=== PATIENT | male | born 1940 | race Caucasian/White ===

== ENCOUNTER 2018-02-22 11:10 | Inpatient (IN) | payer OTHER, MEDICARE ==
[2018-02-22] VITALS (9 sets, daily range): BP systolic 117–152; BP diastolic 59–76; PULSE 68–123; RESP 15–20; TEMP 97.6–103; O2SAT 92–97
[~2018-02-22 11:10] MED LIST: ALLO300T2 PO; AMIT25 PO; AMLO5TAB96 PO; ATOR40TA49 PO; CITA20TA4 PO; DOXA1 PO; GABA300C3 PO; GABA600T PO; MECL25 PO; NORV5TAB PO; TRAM50TA PO; [UNRECOGNIZED DRUG - CODE] IM
--- NOTE | 2018-02-22 11:18 | PD ---
HPI Chief Complaint: Fever and diarrhea Time Seen by Provider: 11:17 Travel History International Travel<30 days: No Contact w/Intl Traveler<30days: No Traveled to known affect area: No History of Present Illness HPI 77-year-old male came to the emergency room with his for fever. Patient says he has been running a fever for past 7 days along with diarrhea. Patient did contact his primary care what was told to take Tylenol. The fever is not getting better and neither is the diarrhea. Patient took some hydrocodone and Tylenol under distress and diaphoretic. He says he has had 4-5 episodes of diarrhea in past 24 hours. No sick contacts no antibiotic consumption. He is tachycardic in triage. No history of vomiting. Patient is coughing occasionally he said. Patient looks uncomfortable and in moderate distress. PFSH Past Medical History Narrative Medical List of his past medical, surgical, social and family history is reviewed from the nursing note. AAA: Yes Arthritis: Yes Blood Disorders: No Depression: Yes ([facility]) Cancer: No High Cholesterol: Yes Chemotherapy: No Diminished Hearing: No Endocrine: No Gout: Yes Hypertension: Yes Immune Disorder: No Psychiatric: Yes Radiation Therapy: No Shingles: Yes (POST HERPATIC NEURALGIA) Ulcer: Yes Past Surgical History Abdominal Surgery: No Cardiac Surgery: No Ear Surgery: No Endocrine Surgery: No Eye Surgery: No Genitourinary Surgery: No Gynecologic Surgery: No Oral Surgery: Yes (TEETH EXTRACTED) Thoracic Surgery: No Valve Replacement: Yes Other Surgery: Yes (NEVI REMOVED FROM R SHOULDER) Social History Alcohol Use: No Tobacco Use: No (QUIT SMOKING IN 1976) Substance Use: No Allergies-Medications (Allergen,Severity, Reaction): Coded Allergies: No Known Allergies (Verified Allergy, Unknown, 02/22/18) Comments No known drug allergies. Reported Meds & Prescriptions Reported Meds & Active Scripts Active Reported Testosterone Cypionate Inj (Testosterone Cypionate) 100 Mg/Ml Inj 1.5 Ml IM EVERY 10 DAYS Atorvastatin (Atorvastatin Calcium) 20 Mg Tab 20 Mg PO HS Amlodipine (Amlodipine Besylate) 5 Mg Tab 5 Mg PO HS Doxazosin (Doxazosin Mesylate) 8 Mg Tab 8 Mg PO HS Allopurinol 300 Mg Tab 150 Mg PO DAILY Levothyroxine (Levothyroxine Sodium) 25 Mcg Tab 25 Mcg PO DAILY Sertraline (Sertraline HCl) 100 Mg Tab 100 Mg PO DAILY Gabapentin 800 Mg Tab 800 Mg PO TID Hydrocodone-Acetaminophen 5-325 mg Tab 1 Tab PO Q6H PRN Narrative Medication List of his home medications reviewed from the nursing note. Review of Systems Except as stated in HPI: all other systems reviewed are Neg General / Constitutional: Positive: Fever Gastrointestinal: Positive: Diarrhea Physical Exam Narrative GENERAL: Awake, lethargic, moderate distress, obese SKIN: Focused skin assessment warm/dry. Diaphoretic HEAD: Atraumatic. Normocephalic. EYES: Pupils equal and round. No scleral icterus. No injection or drainage. ENT: No nasal bleeding or discharge. Dry mucous membrane. NECK: Trachea midline. No JVD. CARDIOVASCULAR: Regular rate and rhythm. No murmur appreciated. RESPIRATORY: No accessory muscle use. Clear to auscultation. Breath sounds equal bilaterally. GASTROINTESTINAL: Abdomen soft, non-tender, nondistended. Hepatic and splenic margins not palpable. MUSCULOSKELETAL: No obvious deformities. No clubbing. No cyanosis. No edema. NEUROLOGICAL: Awake and alert. No obvious cranial nerve deficits. Motor grossly within normal limits. Normal speech. PSYCHIATRIC: Appropriate mood and affect; insight and judgment normal. Data Data Last Documented VS Vital Signs Date Time Temp Pulse Resp B/P (MAP) Pulse Ox O2 Delivery O2 Flow Rate FiO2 02/22/18 14:16 99.1 77 20 122/59 (80) 96 Nasal Cannula 2.00 Orders Orders Ketorolac Inj (Toradol Inj) (02/22/18 11:30) Sepsis Workup Initiated (02/22/18 ) Complete Blood Count With Diff (02/22/18 11:36) Comprehensive Metabolic Panel (02/22/18 11:36) Lactic Acid Sepsis Protocol (02/22/18 11:36) Urinalysis - C+S If Indicated (02/22/18 11:36) Influenzae A/B Antigen (02/22/18 11:36) Blood Culture (02/22/18 11:36) Chest, Single Ap (02/22/18 11:36) Blood Glucose (02/22/18 11:36) Ecg Monitoring (02/22/18 11:36) Iv Access Insert/Monitor (02/22/18 11:36) Oximetry (02/22/18 11:36) Oxygen Administration (02/22/18 11:36) Sodium Chlor 0.9% 1000 Ml Inj (Ns 1000 M (02/22/18 11:45) Sodium Chlor 0.9% 1000 Ml Inj (Ns 1000 M (02/22/18 11:45) Enteric Path (Stool) (02/22/18 11:36) C Diff Toxin Pcr (02/22/18 11:36) Acetaminophen (Tylenol) (02/22/18 11:45) Potassium Chloride (Kcl) (02/22/18 12:30) Ct Abd/Pel W/O Iv Contrast (02/22/18 ) Chest, Pa & Lat (02/22/18 ) Piperacil-Tazo 4.5 Gm Premix (Zosyn 4.5 (02/22/18 12:30) Vancomycin Inj (Vancomycin Inj) (02/22/18 12:30) Sodium Chlor 0.9% 1000 Ml Inj (Ns 1000 M (02/22/18 13:30) Urine Culture (02/22/18 13:25) Admit Order (Ed Use Only) (02/22/18 14:19) Labs Laboratory Tests Test 02/22/18 11:40 02/22/18 13:25 White Blood Count 8.8 TH/MM3 Red Blood Count 4.23 MIL/MM3 Hemoglobin 13.4 GM/DL Hematocrit 39.2 % Mean Corpuscular Volume 92.6 FL Mean Corpuscular Hemoglobin 31.6 PG Mean Corpuscular Hemoglobin Concent 34.1 % Red Cell Distribution Width 13.1 % Platelet Count 144 TH/MM3 Mean Platelet Volume 8.0 FL Neutrophils (%) (Auto) 90.5 % Lymphocytes (%) (Auto) 3.3 % Monocytes (%) (Auto) 3.8 % Eosinophils (%) (Auto) 0.9 % Basophils (%) (Auto) 1.5 % Neutrophils # (Auto) 8.0 TH/MM3 Lymphocytes # (Auto) 0.3 TH/MM3 Monocytes # (Auto) 0.3 TH/MM3 Eosinophils # (Auto) 0.1 TH/MM3 Basophils # (Auto) 0.1 TH/MM3 CBC Comment DIFF FINAL Differential Comment Blood Urea Nitrogen 19 MG/DL Creatinine 1.30 MG/DL Random Glucose 138 MG/DL Total Protein 6.5 GM/DL Albumin 2.9 GM/DL Calcium Level 8.1 MG/DL Alkaline Phosphatase 106 U/L Aspartate Amino Transf (AST/SGOT) 19 U/L Alanine Aminotransferase (ALT/SGPT) 19 U/L Total Bilirubin 2.6 MG/DL Sodium Level 137 MEQ/L Potassium Level 3.3 MEQ/L Chloride Level 103 MEQ/L Carbon Dioxide Level 26.5 MEQ/L Anion Gap 8 MEQ/L Estimat Glomerular Filtration Rate 54 ML/MIN Lactic Acid Level 2.7 mmol/L Urine Collection Type CATH Urine Color DARK-YELLOW Urine Turbidity CLOUDY Urine pH 6.0 Urine Specific [place] 1.025 Urine Protein 100 mg/dL Urine Glucose (UA) NEG mg/dL Urine Ketones 15 mg/dL Urine Occult Blood TRACE Urine Nitrite POS Urine Bilirubin MOD Urine Urobilinogen GREATER/EQUAL 8.0 MG/DL Urine Leukocyte Esterase SMALL Urine RBC 4-9 /hpf Urine WBC 50-99 /hpf Urine Bacteria MANY /hpf Microscopic Urinalysis Comment CULTURE INDICATED Urine Collection Time 13:25 MDM Medical Decision Making Medical Screen Exam Complete: Yes Emergency Medical Condition: Yes Medical Record Reviewed: Yes Differential Diagnosis Sepsis, pneumonia, UTI, acute colitis Narrative Course 12:12 PM awaiting for blood test result and x-ray. Patient is getting IV fluid bolus and Toradol which would be an antipyretic for him. 12:25 PM blood test results are back and patient has elevated bilirubin and normal CBC with significant left shift. Potassium is slightly low and I have ordered for oral replacement. Chest x-ray shows bilateral lower base possible infiltrate but radiologist says as for AP and lateral x-ray. Currently awaiting for the x-ray and the CT abdomen and pelvis. Lactic acid is elevated. I will order Zosyn and vancomycin. Patient will require to be admitted once CTs are done. 1:14 PM the PA and lateral chest x-ray is negative for any infiltrate. Awaiting for the CT to be done and resulted. UA is strongly positive for UTI. I have ordered for a second bolus of fluid. I will admit him. Critical Care Narrative Aggregate critical care time was 30 minutes. Time to perform other separately billable procedures was not included in the critical care time. My time did not include minutes spent treating any other patients simultaneously or on activities that did not directly contribute to the patient's treatment. The services I provided to this patient were to treat and/or prevent clinically significant deterioration that could result in: Sepsis, sepsis protocol I provided critical care services requiring my management, as noted below: Chart data review, documentation time, medication orders and management, vital sign assessments/reviewing monitor data, ordering and reviewing lab tests, ordering and interpreting/reviewing x-rays and diagnostic studies, care of the patient and discussion of the patient with the admitting physicians. Procedures EKG Prior to Arrival: No Sepsis Criteria SIRS Criteria (2 or more): Temp > 100.9 or < 96.8, Heart rate over 90 Sepsis Criteria (SIRS+source): Infect source susp/known Severe Sepsis (+one): Lactate >2 Diagnosis Primary Impression: Sepsis Qualified Codes: A41.9 - Sepsis, unspecified organism Additional Impressions: Diarrhea Qualified Codes: R19.7 - Diarrhea, unspecified UTI (urinary tract infection) Qualified Codes: N39.0 - Urinary tract infection, site not specified Cholelithiasis Qualified Codes: K80.20 - Calculus of gallbladder without cholecystitis without obstruction Admitting Information Admitting Physician Requests: Conner Denise MD Feb 22, 2018 11:18
[2018-02-22] MEDS ORDERED: HYDR-3516 PO (11:27)
[2018-02-22] MEDS ORDERED: UNK MEDS (11:28)
[2018-02-22] MEDS ORDERED: KETOROLAC TROMETHAMINE 30 MG/ML (IVP) VIAL IV PUSH ONE (11:30)
[2018-02-22] MEDS ORDERED: SODIUM CHLOR 0.9% 1000 ML INJ 1,000 ML IV ONE ×3 (11:45→13:30)
[2018-02-22] MEDS ORDERED: ACETAMINOPHEN 325 MG TAB PO ONE (11:45)
[2018-02-22] MEDS ORDERED: SERT-129 PO (11:55)
[2018-02-22] MEDS ORDERED: ALLO300T2 PO (11:55)
[2018-02-22] MEDS ORDERED: GABA800T PO (11:55)
[2018-02-22] MEDS ORDERED: AMLO5TAB2 PO (11:55)
[2018-02-22] MEDS ORDERED: LEVO25TA4 PO (11:55)
[2018-02-22] MEDS ORDERED: ATOR20TA15 PO (11:55)
[2018-02-22] MEDS ORDERED: TEST1INJ3 IM (11:55)
[2018-02-22] MEDS ORDERED: DOXA1TAB43 PO (11:55)
[2018-02-22 12:02] LABS: BASOPHIL # 0.1 TH/MM3 (0-0.2); BASOPHIL % 1.5 % (0.0-2.0); EOSINOPHIL # 0.1 TH/MM3 (0-0.4); EOSINOPHIL % 0.9 % (0.0-4.0); HEMATOCRIT 39.2 % (39.0-51.0); HEMOGLOBIN 13.4 GM/DL (13.0-17.0); LYMPH % 3.3 % (9.0-44.0); LYMPHOCYTE # 0.3 TH/MM3 (1.0-4.8); MEAN CELL VOLUME 92.6 FL (80.0-100.0); MEAN CORPUSCULAR HEMOGLOBIN 31.6 PG (27.0-34.0); MEAN CORPUSCULAR HGB CONC 34.1 % (32.0-36.0); MONO % 3.8 % (0.0-8.0); MONOCYTE # 0.3 TH/MM3 (0-0.9); NEUT % 90.5 % (16.0-70.0); PLATELET COUNT 144 TH/MM3 (150-450); RED BLOOD COUNT 4.23 MIL/MM3 (4.50-5.90); RED CELL DISTRIBUTION WIDTH 13.1 % (11.6-17.2); WHITE BLOOD COUNT 8.8 TH/MM3 (4.0-11.0)
[2018-02-22 12:11] LABS: CHLORIDE 103 MEQ/L (98-107); SODIUM (NA) 137 MEQ/L (136-145)
[2018-02-22 12:14] LABS: CALCIUM 8.1 MG/DL (8.5-10.1)
[2018-02-22 12:15] LABS: ALBUMIN 2.9 GM/DL (3.4-5.0); BICARBONATE 26.5 MEQ/L (21.0-32.0); BLOOD UREA NITROGEN 19 MG/DL (7-18); GLUCOSE,RANDOM 138 MG/DL (74-106)
[2018-02-22 12:18] LABS: ALT (GPT) 19 U/L (12-78); AST (GOT) 19 U/L (15-37); GLOMERULAR FILTRATION RATE 54 ML/MIN (>89)
[2018-02-22 12:19] LABS: TOTAL BILIRUBIN ADULT 2.6 MG/DL (0.2-1.0); TOTAL PROTEIN 6.5 GM/DL (6.4-8.2)
[2018-02-22 12:21] LABS: ALKALINE PHOSPHATASE 106 U/L (45-117)
--- NOTE | 2018-02-22 12:22 | RADRPT ---
EXAM DATE/TIME: 02/22/2018 12:04 [facility] COMPARISON: No previous studies available for comparison. INDICATIONS : Cough MEDICAL HISTORY : Hypertension. Hypercholesterolemia. SURGICAL HISTORY : AAA ENCOUNTER: Initial ACUITY: 2 days PAIN SCORE: 5/10 LOCATION: Bilateral chest FINDINGS: Subtle patchy opacities in the lung bases bilaterally. Cardiomediastinal contours are within normal l imits. Bony thorax is intact. CONCLUSION: 1. Subtle patchy opacities in the lung bases bilaterally. This may be due to portable technique and s uboptimal inspiration. However, developing pneumonia or aspiration cannot be excluded. Consider forma l PA and lateral views of the chest for better evaluation as clinically appropriate. Chi Cleary MD on February 22, 2018 at 12:19 Board Certified Radiologist. This report was verified electronically.
[2018-02-22 12:23] LABS: LACTIC ACID SEPSIS PROTOCOL 2.7 mmol/L (0.4-2.0)
[2018-02-22] MEDS ORDERED: POTASSIUM CHLORIDE 20 MEQ CONTROLLED RELEASE TAB PO ONE (12:30)
[2018-02-22] MEDS ORDERED: VANCOMYCIN INJ 1,000 MG in SODIUM CHLOR 0.9% 250 ML INJ 250 ML IV ONE (12:30)
[2018-02-22] MEDS ORDERED: PIPERACIL-TAZO 4.5 GM PREMIX 100 ML IV ONE (12:30)
--- NOTE | 2018-02-22 13:07 | RADRPT ---
EXAM DATE/TIME: 02/22/2018 12:40 [facility] COMPARISON: No previous studies available for comparison. INDICATIONS : Cough, fever, body aches. MEDICAL HISTORY : Hypertension. Hypercholesterolemia. SURGICAL HISTORY : Abdominal aortic aneurysm repair. ENCOUNTER: Subsequent ACUITY: 2 days PAIN SCORE: 0/10 LOCATION: chest FINDINGS: PA and lateral views of the chest demonstrate the lungs to be symmetrically aerated without evidence of mass, infiltrate or effusion. The cardiomediastinal contours are unremarkable. Osseous structure s are intact. CONCLUSION: 1. No active disease. Waldemar Rankin MD on February 22, 2018 at 13:04 Board Certified Radiologist. This report was verified electronically.
[2018-02-22 13:29] LABS: BILIRUBIN, URINE MOD (NEG); BLOOD, URINE TRACE (NEG); GLUCOSE,URINE NEG (NEG); KETONE, URINE 15 mg/dL (NEG); NITRITE,URINE POS (NEG); URINE LEUKOCYTE ESTERASE SMALL (NEG)
[2018-02-22 13:33] LABS: URINE COLOR DARK-YELLOW (YELLW/STRAW)
[2018-02-22 13:34] LABS: BACTERIA, URINE MANY /hpf
--- NOTE | 2018-02-22 13:44 | RADRPT ---
EXAM DATE/TIME: 02/22/2018 13:05 [facility] COMPARISON: No previous studies available for comparison. INDICATIONS : Fever x 1 week. Diarrhea. ORAL CONTRAST: No oral contrast ingested. RADIATION DOSE: 24.93 CTDIvol (mGy) ; Patient body habitus MEDICAL HISTORY : Aneurysm, abdominal. Ulcers. Hypertension. SURGICAL HISTORY : Valve replacement. ENCOUNTER: Initial ACUITY: 1 week PAIN SCALE: 0/10 LOCATION: Abdomen. TECHNIQUE: Volumetric scanning of the abdomen and pelvis was performed. Using automated exposure control and ad justment of the mA and/or kV according to patient size, radiation dose was kept as low as reasonably achievable to obtain optimal diagnostic quality images. DICOM format image data is available electro nically for review and comparison. FINDINGS: LOWER LUNGS: The visualized lower lungs are clear. LIVER: Homogeneous density without lesion noncontrast technique. There is no dilation of the biliary tree. There are multiple small calcified gallstones.. SPLEEN: Normal size without lesion. PANCREAS: Within normal limits. KIDNEYS: Normal in size and shape. No calcified stones or hydronephrosis. There is a 2.7 cm fat containing t umor in the posterior midpole of the left kidney.. ADRENAL GLANDS: Within normal limits. VASCULAR: There is no aortic aneurysm. BOWEL/MESENTERY: No dilated loops of small or large bowel. There is some induration of the fat in the left lower quad rant posterior to the proximal sigmoid colon. There are few small diverticula in the proximal sigmoi d colon. ABDOMINAL WALL: There is a small umbilical hernia; a loop of small bowel does extend into the umbilical hernia. No e vidence of strangulation. RETROPERITONEUM: There is no lymphadenopathy. BLADDER: No wall thickening or mass. REPRODUCTIVE: Within normal limits. INGUINAL: There is no lymphadenopathy or hernia. MUSCULOSKELETAL: Within normal limits for patient age. CONCLUSION: 1. Multiple calcified gallstones. 2. Small umbilical hernia which contains a loop of small bowel. No dilated loops of small or large b owel. 3. There is some mild induration of the fat in the left lower quadrant posterior to the proximal sigm oid. There also a few scattered sigmoid diverticula. The areas of induration did not come into cont act with the sigmoid suggesting this may be manifestation of an old inflammatory process. No evidenc e of free fluid. 4. 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 Jordon Franco MD on February 22, 2018 at 13:37 Board Certified Radiologist. This report was verified electronically.
--- NOTE | 2018-02-22 14:53 | HHI.HP ---
[facility] Primary Care Physician Abiel Hand MD Admission Diagnosis Sepsis, UTI Diagnoses: (1) Sepsis (2) UTI (urinary tract infection) (3) Diarrhea (4) Cholelithiasis Chief Complaint: Subjective fever, dysuria and diarrhea Travel History International Travel<30 Days: No Contact w/Intl Traveler <30 Da: No Traveled to Known Affected Are: No Sepsis Criteria SIRS Criteria (2 or more): Temp > 100.9 or < 96.8, Heart rate over 90 Sepsis Criteria (SIRS+source): Infect source susp/known Severe Sepsis (+one): Lactate >2 Criteria Outcome: Meets sepsis criteria History of Present Illness This is a pleasant 77-year-old male patient with a known medical history of hyperlipidemia, hypertension and AAA who presented to the ED with complaints of subjective fever, dysuria and diarrhea. Patient states that over a week now he has been noticing increasing dysuria, hesitancy and frequency during urination. Patient states he attempted drinking more water to relieve the symptoms with no relief but symptoms have actually worsened with complaint of associated fever up to 103 at home and persistent diarrhea. Does admit to poor appetite. Patient denies any recent antibiotic use. Denies any sick contacts. Denies any abdominal pain, nausea or vomiting. Patient's PCP is Dr. Hand. Review of Systems Constitutional: COMPLAINS OF: Fatigue, Fever, Chills Endocrine: COMPLAINS OF: Polyuria Eyes: DENIES: Blurred vision, Diplopia Respiratory: DENIES: Cough, Sputum production, Shortness of breath Cardiovascular: DENIES: Chest pain, Syncope Gastrointestinal: DENIES: Abdominal pain, Black stools, Bloody stools, Constipation, Diarrhea, Nausea, Vomiting Genitourinary: COMPLAINS OF: Urinary frequency, Urgency, Dysuria, DENIES: Urinary incontinence, Hematuria Musculoskeletal: DENIES: Joint pain Psychiatric: DENIES: Anxiety Except as stated in HPI: all other systems reviewed are Neg Past Family Social History Past Medical History AAA Arthritis Depression Hyperlipidemia Gout Hypertension History of shingles Past Surgical History Right shoulder nevi removed Tooth extraction Reported Medications Active Reported Testosterone Cypionate Inj (Testosterone Cypionate) 100 Mg/Ml Inj 1.5 Ml IM EVERY 10 DAYS Atorvastatin (Atorvastatin Calcium) 20 Mg Tab 20 Mg PO HS Amlodipine (Amlodipine Besylate) 5 Mg Tab 5 Mg PO HS Doxazosin (Doxazosin Mesylate) 8 Mg Tab 8 Mg PO HS Allopurinol 300 Mg Tab 150 Mg PO DAILY Levothyroxine (Levothyroxine Sodium) 25 Mcg Tab 25 Mcg PO DAILY Sertraline (Sertraline HCl) 100 Mg Tab 100 Mg PO DAILY Gabapentin 800 Mg Tab 800 Mg PO TID Hydrocodone-Acetaminophen 5-325 mg Tab 1 Tab PO Q6H PRN Allergies: Coded Allergies: No Known Allergies (Verified Allergy, Unknown, 02/22/18) Family History Denies any significant family medical history. Social History Patient denies any tobacco abuse, alcohol or illicit drug use. Physical Exam Vital Signs Vital Signs Date Time Temp Pulse Resp B/P (MAP) Pulse Ox O2 Delivery O2 Flow Rate FiO2 02/22/18 14:16 99.1 77 20 122/59 (80) 96 Nasal Cannula 2.00 02/22/18 12:54 71 20 117/62 (80) 95 Nasal Cannula 2.00 02/22/18 11:50 103.0 111 20 152/71 (98) 92 Nasal Cannula 2.00 02/22/18 11:40 93 02/22/18 11:40 Nasal Cannula 2.00 02/22/18 11:23 103.0 123 20 152/72 (98) 92 Physical Exam GENERAL: Well-developed, well-nourished patient in NAD. On supplemental O2. SKIN: Warm and dry. No rash. HEAD: Normocephalic. Atraumatic. EYES: Pupils equal and round. No scleral icterus. No injection or drainage. ENT: No nasal bleeding or discharge. Mucous membranes pink and moist. NECK: Supple. Trachea midline. CARDIOVASCULAR: Regular rate and rhythm. S1, S2 noted. No murmur appreciated. RESPIRATORY: No accessory muscle use. Clear to auscultation. Breath sounds equal bilaterally. GASTROINTESTINAL: Abdomen soft, non-tender, round. Normoactive bowel sounds x4. MUSCULOSKELETAL: No obvious deformities. Extremities without clubbing, cyanosis , or edema. NEUROLOGICAL: Awake and alert. No obvious cranial nerve deficits. Motor grossly within normal limits. 5/5 muscle strength in bilateral upper and lower extremities. Normal speech. Laboratory Laboratory Tests Test 02/22/18 11:40 02/22/18 13:25 White Blood Count 8.8 Red Blood Count 4.23 Hemoglobin 13.4 Hematocrit 39.2 Mean Corpuscular Volume 92.6 Mean Corpuscular Hemoglobin 31.6 Mean Corpuscular Hemoglobin Concent 34.1 Red Cell Distribution Width 13.1 Platelet Count 144 Mean Platelet Volume 8.0 Neutrophils (%) (Auto) 90.5 Lymphocytes (%) (Auto) 3.3 Monocytes (%) (Auto) 3.8 Eosinophils (%) (Auto) 0.9 Basophils (%) (Auto) 1.5 Neutrophils # (Auto) 8.0 Lymphocytes # (Auto) 0.3 Monocytes # (Auto) 0.3 Eosinophils # (Auto) 0.1 Basophils # (Auto) 0.1 CBC Comment DIFF FINAL Differential Comment Blood Urea Nitrogen 19 Creatinine 1.30 Random Glucose 138 Total Protein 6.5 Albumin 2.9 Calcium Level 8.1 Alkaline Phosphatase 106 Aspartate Amino Transf (AST/SGOT) 19 Alanine Aminotransferase (ALT/SGPT) 19 Total Bilirubin 2.6 Sodium Level 137 Potassium Level 3.3 Chloride Level 103 Carbon Dioxide Level 26.5 Anion Gap 8 Estimat Glomerular Filtration Rate 54 Lactic Acid Level 2.7 Urine Collection Type CATH Urine Color DARK-YELLOW Urine Turbidity CLOUDY Urine pH 6.0 Urine Specific [place] 1.025 Urine Protein 100 Urine Glucose (UA) NEG Urine Ketones 15 Urine Occult Blood TRACE Urine Nitrite POS Urine Bilirubin MOD Urine Urobilinogen GREATER/EQUAL 8.0 Urine Leukocyte Esterase SMALL Urine RBC 4-9 Urine WBC 50-99 Urine Bacteria MANY Microscopic Urinalysis Comment CULTURE INDICATED Urine Collection Time 13:25 Date/Time Source Procedure Growth Status 02/22/18 11:45 Blood Peripheral Aerobic Blood Culture Pending Received 02/22/18 11:45 Blood Peripheral Anaerobic Blood Culture Pending Received 02/22/18 11:40 Nasal Aspirate Influenza Types A,B Antigen (MACARIO) - Final NEGATIVE FOR FLU A AND B ANTIGEN.... Complete 02/22/18 13:25 Urine Clean Catch Urine Culture Pending Received Result Diagram: 02/22/18 1140 02/22/18 1140 Imaging Last Impressions Chest X-Ray 02/22/18 1136 Signed Impressions: Service Date/Time: Thursday, February 22, 2018 12:04 - CONCLUSION: 1. Subtle patchy opacities in the lung bases bilaterally. This may be due to portable technique and suboptimal inspiration. However, developing pneumonia or aspiration cannot be excluded. Consider formal PA and lateral views of the chest for better evaluation as clinically appropriate. Chi Cleary MD Abdomen/Pelvis CT 02/22/18 0000 Signed Impressions: Service Date/Time: Thursday, February 22, 2018 13:05 - CONCLUSION: 1. Multiple calcified gallstones. 2. Small umbilical hernia which contains a loop of small bowel. No dilated loops of small or large bowel. 3. There is some mild induration of the fat in the left lower quadrant posterior to the proximal sigmoid. There also a few scattered sigmoid diverticula. The areas of induration did not come into contact with the sigmoid suggesting this may be manifestation of an old inflammatory process. No evidence of free fluid. 4. 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 Jordon Franco MD Septic Shock Reassessment Septic shock perfusion: reassessment completed Caprini VTE Risk Assessment Caprini VTE Risk Assessment: Mod/High Risk (score >= 2) Caprini Risk Assessment Model Point Value = 1 Point Value = 2 Point Value = 3 Point Value = 5 Age 41-60 Minor surgery BMI > 25 kg/m2 Swollen legs Varicose veins or History of unexplained or recurrent spontaneous Oral contraceptives or hormone replacement Sepsis (< 1 month) Serious lung disease, including pneumonia (< 1 month) Abnormal pulmonary function Acute myocardial infarction Congestive heart failure (< 1 month) History of inflammatory bowel disease Medical patient at bed rest Age 61-74 Arthroscopic surgery Major open surgery (> 45 min) Laparoscopic surgery (> 45 min) Malignancy Confined to bed (> 72 hours) Immobilizing plaster cast Central venous access Age >= 75 History of VTE Family history of VTE Factor V Leiden Prothrombin [id number] Lupus anticoagulant Anticardiolipin antibodies Elevated serum homocysteine Heparin-induced thrombocytopenia Other congenital or acquired thrombophilia Stroke (< 1 month) Elective arthroplasty Hip, pelvis, or leg fracture Acute spinal cord injury (< 1 month) Prophylaxis Regimen Total Risk Factor Score Risk Level Prophylaxis Regimen 0-1 Low Early ambulation 2 Moderate Order ONE of the following: *Sequential Compression Device (SCD) *Heparin 5000 units SQ BID 3-4 Higher Order ONE of the following medications: *Heparin 5000 units SQ TID *Enoxaparin/Lovenox 40 mg SQ daily (WT < 150 kg, CrCl > 30 mL/min) *Enoxaparin/Lovenox 30 mg SQ daily (WT < 150 kg, CrCl > 10-29 mL/min) *Enoxaparin/Lovenox 30 mg SQ BID (WT < 150 kg, CrCl > 30 mL/min) AND/OR *Sequential Compression Device (SCD) 5 or more Highest Order ONE of the following medications: *Heparin 5000 units SQ TID (Preferred with Epidurals) *Enoxaparin/Lovenox 40 mg SQ daily (WT < 150 kg, CrCl > 30 mL/min) *Enoxaparin/Lovenox 30 mg SQ daily (WT < 150 kg, CrCl > 10-29 mL/min) *Enoxaparin/Lovenox 30 mg SQ BID (WT < 150 kg, CrCl > 30 mL/min) AND *Sequential Compression Device (SCD) Assessment and Plan Problem List: (1) Sepsis ICD Code: A41.9 - Sepsis, unspecified organism Status: Acute (2) UTI (urinary tract infection) ICD Code: N39.0 - Urinary tract infection, site not specified Status: Acute (3) Diarrhea ICD Code: R19.7 - Diarrhea, unspecified Status: Acute (4) Cholelithiasis ICD Code: K80.20 - Calculus of gallbladder without cholecystitis without obstruction Status: Acute Assessment and Plan This is a pleasant 77-year-old male patient with a known medical history of hyperlipidemia, hypertension and AAA who presented to the ED with complaints of subjective fever, dysuria and diarrhea. Sepsis secondary to UTI with possible pneumonia - Meet sepsis criteria with tachycardia, fever, elevated lactic acid, suspect source UTI - Chest x-ray reviewed showing septal patchy opacities in lung bases bilaterally. Developing pneumonia or aspiration cannot be excluded. Placed on Vanco and Zosyn IV. - UA reviewed showing presence of leukocyte esterase and white blood cells. Urine culture pending, follow growth. Blood cultures pending, follow growth. - Was given 3 L NS bolus in ED. Ensure hydration, continue IV fluid. - No leukocytosis at this time. Monitor for fever. Monitor CBC. Influenza negative. - Monitor for nausea or vomiting, Zofran available as needed. Acetaminophen for fever. - Control pain, Mode available as needed. - Supplemental O2 as needed. Patient on 2 L nasal cannula. Supportive care. Cholelithiasis Diarrhea - Abdominal/pelvis CT reviewed showing multiple calcified gallstones. Small umbilical hernia. Diverticula. No evidence of free fluid. Supportive care. - Will obtain stool studies including C. difficile. Follow. Hypokalemia, mild: K3.3. Status post replacement. Monitor BMP. Hypothyroidism, chronic: Continue home Synthroid. Hypertension, chronic: Monitor BP trends. Currently controlled. Will restart on home Norvasc and Cardura. Hyperlipidemia, chronic: Continue home statin. DVT prophylaxis: SCDs. Heparin. Physician Certification 2 Midnight Certification Type: Admission for Inpatient Services Order for Inpatient Services The services are ordered in accordance with Medicare regulations or non- Medicare payer requirements, as applicable. In the case of services not specified as inpatient-only, they are appropriately provided as inpatient services in accordance with the 2-midnight benchmark. Estimated LOS (days): 3 3 days is the estimated time the patient will need to remain in the hospital, assuming treatment plan goals are met and no additional complications. Post-Hospital Plan: Not yet determined Problem Qualifiers (1) Sepsis: Qualified Codes: A41.9 - Sepsis, unspecified organism (2) UTI (urinary tract infection): Qualified Codes: N39.0 - Urinary tract infection, site not specified (3) Diarrhea: Qualified Codes: R19.7 - Diarrhea, unspecified (4) Cholelithiasis: Qualified Codes: K80.20 - Calculus of gallbladder without cholecystitis without obstruction Zulema Stevens Feb 22, 2018 14:53
[2018-02-22] MEDS ORDERED: NALOXONE HCL 0.4 MG/ML AMP IV PUSH PRN (15:00)
[2018-02-22] MEDS ORDERED: SENNOSIDES 8.6 MG TAB PO PRN (15:00)
[2018-02-22] MEDS ORDERED: ACETAMINOPHEN 325 MG TAB PO PRN (15:00)
[2018-02-22] MEDS ORDERED: MAGNESIUM HYDROXIDE SUSP 30 ML CUP PO PRN (15:00)
[2018-02-22] MEDS ORDERED: ONDANSETRON HCL 4 MG/2 ML VIAL IVP PRN (15:00)
[2018-02-22] MEDS: SODIUM CHLOR 0.9% 1000 ML INJ 1,000 ML IV SCH (15:00)
[2018-02-22] MEDS ORDERED: SODIUM CHLORIDE 0.9% FLUSH 10 ML FLUSH IV FLUSH PRN (15:00)
[2018-02-22] MEDS ORDERED: BISACODYL 10 MG SUPP RECTAL PRN (15:00)
[2018-02-22] MEDS ORDERED: PILL SPLITTER OTHER PRN (15:15)
[2018-02-22] MEDS: HEPARIN SODIUM - SQ 10,000 UNITS/ML VIAL SQ SCH (16:00)
[2018-02-22] MEDS: GABAPENTIN 400 MG CAP PO SCH (18:14)
[2018-02-22] MEDS: ACETAMINOPHEN/HYDROcodone 325 MG/5 MG TAB PO PRN (18:14)
[2018-02-22] MEDS ORDERED: DOCUSATE SODIUM 50 MG/SENNA 8.6 MG TAB PO SCH (21:00)
[2018-02-22] MEDS: ATORVASTATIN 20 MG TAB PO SCH (21:16)
[2018-02-22] MEDS: DOXAZOSIN MESYLATE 4 MG TAB PO SCH (21:16)
[2018-02-22] MEDS: amLODIPine BESYLATE 5 MG TAB PO SCH (21:16)
[2018-02-22] MEDS: PIPERACIL-TAZO 4.5 GM PREMIX 100 ML IV SCH (21:26)
[2018-02-22] MEDS: SODIUM CHLORIDE 0.9% FLUSH 10 ML FLUSH IV FLUSH SCH (21:26)
[2018-02-23] VITALS: BP 155/88; PULSE 71; RESP 20; TEMP 96.7; O2SAT 96
[2018-02-23] MEDS: HEPARIN SODIUM - SQ 10,000 UNITS/ML VIAL SQ SCH ×2 (04:19→15:34)
[2018-02-23] MEDS: SODIUM CHLOR 0.9% 1000 ML INJ 1,000 ML IV SCH ×3 (04:20→21:12)
[2018-02-23] MEDS: ACETAMINOPHEN/HYDROcodone 325 MG/5 MG TAB PO PRN ×2 (04:21→21:23)
[2018-02-23] MEDS: PIPERACIL-TAZO 4.5 GM PREMIX 100 ML IV SCH ×3 (05:35→21:12)
[2018-02-23] MEDS: LEVOTHYROXINE SODIUM 25 MCG TAB PO SCH (06:23)
[2018-02-23 06:48] LABS: AUTOMATED NEUTROPHIL # 6.3 TH/MM3 (1.8-7.7); BASOPHIL % 0.2 % (0.0-2.0); EOSINOPHIL # 0.2 TH/MM3 (0-0.4); EOSINOPHIL % 2.1 % (0.0-4.0); HEMATOCRIT 37.1 % (39.0-51.0); HEMOGLOBIN 12.8 GM/DL (13.0-17.0); LYMPH % 9.3 % (9.0-44.0); LYMPHOCYTE # 0.8 TH/MM3 (1.0-4.8); MEAN CELL VOLUME 93.2 FL (80.0-100.0); MEAN CORPUSCULAR HEMOGLOBIN 32.2 PG (27.0-34.0); MEAN CORPUSCULAR HGB CONC 34.5 % (32.0-36.0); MEAN PLATELET VOLUME 8.5 FL (7.0-11.0); MONO % 11.4 % (0.0-8.0); MONOCYTE # 0.9 TH/MM3 (0-0.9); PLATELET COUNT 135 TH/MM3 (150-450); RED BLOOD COUNT 3.98 MIL/MM3 (4.50-5.90); WHITE BLOOD COUNT 8.2 TH/MM3 (4.0-11.0)
[2018-02-23 07:00] LABS: CALCIUM 8.2 MG/DL (8.5-10.1)
[2018-02-23 07:01] LABS: BICARBONATE 28.1 MEQ/L (21.0-32.0)
[2018-02-23 07:04] LABS: CREATININE 1.2 MG/DL (0.60-1.30)
[2018-02-23 08:00] VITALS: BP 162/77; PULSE 85; RESP 19; TEMP 98.3; O2SAT 95
[2018-02-23] MEDS: GABAPENTIN 400 MG CAP PO SCH ×3 (08:43→17:49)
--- NOTE | 2018-02-23 08:43 | HHI.PR ---
Subjective Remarks Follow-up sepsis secondary to UTI. Patient seen and examined, lying in bed comfortably. Patient states that he has continued diarrhea overnight, abdominal pain as well. He did eat this morning with no bout of nausea or vomiting. C. difficile is negative. Other stool studies pending. Patient is on room air no complaints of dyspnea. Awaiting PT eval. Afebrile overnight. Objective Vitals Vital Signs Date Time Temp Pulse Resp B/P (MAP) Pulse Ox O2 Delivery O2 Flow Rate FiO2 02/23/18 00:00 96.7 71 20 155/88 (110) 96 02/22/18 21:00 95 21 02/22/18 19:17 97.6 68 20 132/76 (94) 95 02/22/18 19:09 20 02/22/18 16:19 97.7 69 15 120/64 (82) 97 02/22/18 15:39 02/22/18 15:00 97 Nasal Cannula 2.00 02/22/18 14:16 99.1 77 20 122/59 (80) 96 Nasal Cannula 2.00 02/22/18 12:54 71 20 117/62 (80) 95 Nasal Cannula 2.00 02/22/18 11:50 103.0 111 20 152/71 (98) 92 Nasal Cannula 2.00 02/22/18 11:40 93 02/22/18 11:40 Nasal Cannula 2.00 02/22/18 11:23 103.0 123 20 152/72 (98) 92 I/O 02/22/18 02/22/18 02/22/18 02/23/18 02/23/18 02/23/18 07:00 15:00 23:00 07:00 15:00 23:00 Intake Total 1000 ml 500 ml 1200 ml 960 ml Balance 1000 ml 500 ml 1200 ml 960 ml Intake Oral 200 ml 960 ml IV Total 1000 ml 300 ml 1200 ml # Voids 2 2 4 # Bowel Movements 4 6 Result Diagram: 02/23/18 0520 02/23/18 0520 Imaging Last Impressions Chest X-Ray 02/22/18 1136 Signed Impressions: Service Date/Time: Thursday, February 22, 2018 12:04 - CONCLUSION: 1. Subtle patchy opacities in the lung bases bilaterally. This may be due to portable technique and suboptimal inspiration. However, developing pneumonia or aspiration cannot be excluded. Consider formal PA and lateral views of the chest for better evaluation as clinically appropriate. Chi Cleary MD Abdomen/Pelvis CT 02/22/18 0000 Signed Impressions: Service Date/Time: Thursday, February 22, 2018 13:05 - CONCLUSION: 1. Multiple calcified gallstones. 2. Small umbilical hernia which contains a loop of small bowel. No dilated loops of small or large bowel. 3. There is some mild induration of the fat in the left lower quadrant posterior to the proximal sigmoid. There also a few scattered sigmoid diverticula. The areas of induration did not come into contact with the sigmoid suggesting this may be manifestation of an old inflammatory process. No evidence of free fluid. 4. 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 Jordon Franco MD Objective Remarks GENERAL: Well-developed, well-nourished patient in NAD. SKIN: Warm and dry. No rash. HEAD: Normocephalic. Atraumatic. EYES: Pupils equal and round. No scleral icterus. No injection or drainage. ENT: No nasal bleeding or discharge. Mucous membranes pink and moist. NECK: Supple. Trachea midline. CARDIOVASCULAR: Regular rate and rhythm. S1, S2 noted. No murmur appreciated. RESPIRATORY: No accessory muscle use. Clear to auscultation. Breath sounds equal bilaterally. GASTROINTESTINAL: Abdomen soft, non-tender, nondistended. Normoactive bowel sounds x4. MUSCULOSKELETAL: No obvious deformities. Extremities without clubbing, cyanosis , or edema. NEUROLOGICAL: Awake and alert. No obvious cranial nerve deficits. Motor grossly within normal limits. 5/5 muscle strength in bilateral upper and lower extremities. Normal speech. PSYCHIATRIC: Appropriate mood and affect; insight and judgment normal. A/P Problem List: (1) Sepsis ICD Code: A41.9 - Sepsis, unspecified organism Status: Acute (2) UTI (urinary tract infection) ICD Code: N39.0 - Urinary tract infection, site not specified Status: Acute (3) Diarrhea ICD Code: R19.7 - Diarrhea, unspecified Status: Acute (4) Cholelithiasis ICD Code: K80.20 - Calculus of gallbladder without cholecystitis without obstruction Status: Acute Assessment and Plan This is a pleasant 77-year-old male patient with a known medical history of hyperlipidemia, hypertension and AAA who presented to the ED with complaints of subjective fever, dysuria and diarrhea. Sepsis secondary to UTI with possible pneumonia - Meet sepsis criteria with tachycardia, fever, elevated lactic acid, suspect source UTI - Chest x-ray reviewed showing septal patchy opacities in lung bases bilaterally. Developing pneumonia or aspiration cannot be excluded. Placed on Vanco and Zosyn IV. Will check PA and lateral today. Follow. - UA reviewed showing presence of leukocyte esterase and white blood cells. Urine culture growing gram negative rods, await MACARIO and sensitivity. Continue ABX. Blood cultures growing gram negative ilda x 4 bottles with aerobic bottle with E. Coli. ID consult placed, appreciate further input and recommendations. Will redraw blood cultures. - Was given 3 L NS bolus in ED. Ensure hydration, continue IV fluid. - No leukocytosis at this time. Monitor for fever. Afebrile overnight. Monitor CBC. Influenza negative. - Monitor for nausea or vomiting, Zofran available as needed. Acetaminophen for fever. - Control pain, Rogers available as needed. - Supplemental O2 as needed. Patient on 2 L nasal cannula. Supportive care. Cholelithiasis Diarrhea Hyperbilirubinemia - Abdominal/pelvis CT reviewed showing multiple calcified gallstones. Small umbilical hernia. Diverticula. No evidence of free fluid. Supportive care. - Will obtain stool studies, pending. C. difficile negative. Will add Maalox as needed. - Patient states he has been told his total bilirubin has been elevated in the past. Rechecked today and is trending down. Will continue to monitor. Hypokalemia, mild: K3.3. Status post replacement. 3.7 today. Improved. Hypothyroidism, chronic: Continue home Synthroid. Hypertension, chronic: Currently controlled. Will restart on home Norvasc and Cardura. Follow BP trends. Hyperlipidemia, chronic: Continue home statin. DVT prophylaxis: SCDs. Heparin. Problem Qualifiers (1) Sepsis: Qualified Codes: A41.9 - Sepsis, unspecified organism (2) UTI (urinary tract infection): Qualified Codes: N39.0 - Urinary tract infection, site not specified (3) Diarrhea: Qualified Codes: R19.7 - Diarrhea, unspecified (4) Cholelithiasis: Qualified Codes: K80.20 - Calculus of gallbladder without cholecystitis without obstruction Zulema Stevens [facility] Feb 23, 2018 08:43
[2018-02-23] MEDS: SERTRALINE HCL 100 MG TAB PO SCH (08:44)
[2018-02-23] MEDS: ALLOPURINOL 300 MG TAB PO SCH (08:44)
[2018-02-23] MEDS ORDERED: ALUMINUM/MAGNESIUM/SIMETH 30 ML CUP PO PRN (08:45)
[2018-02-23] MEDS: SODIUM CHLORIDE 0.9% FLUSH 10 ML FLUSH IV FLUSH SCH ×2 (08:45→21:12)
--- NOTE | 2018-02-23 09:26 | RADRPT ---
EXAM DATE/TIME: 02/23/2018 08:56 [facility] COMPARISON: CHEST PA & LAT, February 22, 2018, 12:40. INDICATIONS : Cough, pneumonia. MEDICAL HISTORY : Hypertension. Hypercholesterolemia. Aneurysm, abdominal. Gout. Arthritis. SURGICAL HISTORY : Valve replacement. ENCOUNTER: Subsequent ACUITY: 2 days PAIN SCORE: 0/10 LOCATION: chest FINDINGS: PA and lateral views of the chest demonstrate the lungs to be symmetrically aerated without evidence of mass, infiltrate or effusion. 5 mm calcified granuloma right lower lung. The cardiomediastinal c ontours are unremarkable. Osseous structures are intact. CONCLUSION: No acute cardiopulmonary disease. No focal infiltrates seen. Jordon Franco MD on February 23, 2018 at 9:23 Board Certified Radiologist. This report was verified electronically.
[2018-02-23 12:00] VITALS: BP 150/78; PULSE 71; RESP 15; TEMP 98.1; O2SAT 93
[2018-02-23 12:23] LABS: ALBUMIN 2.7 GM/DL (3.4-5.0)
[2018-02-23 12:26] LABS: DIRECT BILIRUBIN ADULT 0.6 MG/DL (0.0-0.2)
[2018-02-23 12:28] LABS: INDIRECT BILIRUBIN 0.9 MG/DL (0.0-0.8); TOTAL BILIRUBIN ADULT 1.5 MG/DL (0.2-1.0); TOTAL PROTEIN 6.3 GM/DL (6.4-8.2)
[2018-02-23] MEDS ORDERED: VANCOMYCIN INJ 1,000 MG in SODIUM CHLOR 0.9% 250 ML INJ 250 ML IV ONE (15:00)
[2018-02-23 16:00] VITALS: BP 172/87; PULSE 79; RESP 17; TEMP 99.1; O2SAT 96
--- NOTE | 2018-02-23 18:33 | PD.CONS ---
History of Present Illness Service Infectious disease Consult Requested By Zulema Stevens Reason for Consult Bacteremia Primary Care Physician Abiel Hand MD Diagnoses: (1) E. coli septicemia (2) Sepsis (3) UTI (urinary tract infection) History of Present Illness 77? M had dysuria, difficulty urinating for a week with some fevers , sweats- came to hosp with high fever and chills. Found to have a UTI and Blood and urine cultures are positive Some dyspnea and wheezing. No abdominal pain. Some diarrhea Review of Systems Constitutional: COMPLAINS OF: Fever, Chills Endocrine: DENIES: Polydipsia, Polyphagia Eyes: DENIES: Diplopia, Vision loss Ears, nose, mouth, throat: DENIES: Nasal discharge, Oral lesions Respiratory: COMPLAINS OF: Cough, Wheezing, Shortness of breath, DENIES: Sputum production Cardiovascular: DENIES: Palpitations, Syncope Gastrointestinal: COMPLAINS OF: Diarrhea, DENIES: Black stools, Constipation, Difficulty Swallowing Genitourinary: COMPLAINS OF: Urinary frequency, Urgency, Dysuria, Nocturia Musculoskeletal: COMPLAINS OF: Muscle aches, DENIES: Joint Swelling Integumentary: DENIES: Abnormal pigmentation, Pruritus Hematologic/lymphatic: DENIES: Lymphadenopathy Neurologic: DENIES: Headache, Localized weakness, Speech Problems Psychiatric: DENIES: Confusion, Mood changes Past Family Social History Allergies: Coded Allergies: No Known Allergies (Verified Allergy, Unknown, 02/22/18) Past Medical History Past Medical History AAA Arthritis Depression Hyperlipidemia Gout Hypertension History of shingles Past Surgical History Right shoulder nevi removed Tooth extraction Reported Medications Active Reported Testosterone Cypionate Inj (Testosterone Cypionate) 100 Mg/Ml Inj 1.5 Ml IM EVERY 10 DAYS Atorvastatin (Atorvastatin Calcium) 20 Mg Tab 20 Mg PO HS Amlodipine (Amlodipine Besylate) 5 Mg Tab 5 Mg PO HS Doxazosin (Doxazosin Mesylate) 8 Mg Tab 8 Mg PO HS Allopurinol 300 Mg Tab 150 Mg PO DAILY Levothyroxine (Levothyroxine Sodium) 25 Mcg Tab 25 Mcg PO DAILY Sertraline (Sertraline HCl) 100 Mg Tab 100 Mg PO DAILY Gabapentin 800 Mg Tab 800 Mg PO TID Hydrocodone-Acetaminophen 5-325 mg Tab 1 Tab PO Q6H PRN Allergies: Coded Allergies: No Known Allergies (Verified Allergy, Unknown, 02/22/18) Family History Denies any significant family medical history. Social History Patient denies any tobacco abuse, alcohol or illicit drug use. Active Ordered Medications Zosyn Physical Exam Vital Signs Vital Signs Date Time Temp Pulse Resp B/P (MAP) Pulse Ox O2 Delivery O2 Flow Rate FiO2 02/23/18 16:00 99.1 79 17 172/87 (115) 96 02/23/18 12:00 98.1 71 15 150/78 (102) 93 02/23/18 08:00 95 21 02/23/18 08:00 98.3 85 19 162/77 (105) 95 02/23/18 00:00 96.7 71 20 155/88 (110) 96 02/22/18 21:00 95 21 02/22/18 19:17 97.6 68 20 132/76 (94) 95 02/22/18 19:09 20 Physical Exam GENERAL: This is a pleasant obese patient, with some wheezing SKIN: No rashes, ecchymoses or lesions. Cool and dry. HEAD: Atraumatic. Normocephalic. No temporal or scalp tenderness. EYES: Pupils equal round and reactive. Extraocular motions intact. No scleral icterus. No injection or drainage. ENT: Nose without bleeding, purulent drainage or septal hematoma. Throat without erythema, tonsillar hypertrophy or exudate. Uvula midline. Airway patent. NECK: Trachea midline. No JVD or lymphadenopathy. Supple, nontender, no meningeal signs. CARDIOVASCULAR: Regular rate and rhythm without murmurs, gallops, or rubs. RESPIRATORY: Bilateral wheezes GASTROINTESTINAL: Abdomen soft, non-tender, nondistended. No hepato-splenomegaly , or palpable masses. No guarding. MUSCULOSKELETAL: Extremities without clubbing, cyanosis, or edema. No joint tenderness, effusion, or edema noted. No calf tenderness. Negative Homans sign bilaterally. NEUROLOGICAL: Awake and alert. Cranial nerves II through XII intact. Motor and sensory grossly within normal limits. Five out of 5 muscle strength in all muscle groups. Normal speech. Laboratory Laboratory Tests Test 02/23/18 00:44 02/23/18 05:20 Stool C. difficile Toxin (PCR) NEGATIVE Stl C. difficile Toxin Epiderm 027 PRESUMPTIVE NEGATIVE White Blood Count 8.2 Red Blood Count 3.98 Hemoglobin 12.8 Hematocrit 37.1 Mean Corpuscular Volume 93.2 Mean Corpuscular Hemoglobin 32.2 Mean Corpuscular Hemoglobin Concent 34.5 Red Cell Distribution Width 14.0 Platelet Count 135 Mean Platelet Volume 8.5 Neutrophils (%) (Auto) 77.0 Lymphocytes (%) (Auto) 9.3 Monocytes (%) (Auto) 11.4 Eosinophils (%) (Auto) 2.1 Basophils (%) (Auto) 0.2 Neutrophils # (Auto) 6.3 Lymphocytes # (Auto) 0.8 Monocytes # (Auto) 0.9 Eosinophils # (Auto) 0.2 Basophils # (Auto) 0.0 CBC Comment DIFF FINAL Differential Comment Blood Urea Nitrogen 20 Creatinine 1.20 Random Glucose 96 Calcium Level 8.2 Sodium Level 142 Potassium Level 3.7 Chloride Level 107 Carbon Dioxide Level 28.1 Anion Gap 7 Estimat Glomerular Filtration Rate 59 Total Bilirubin 1.5 Direct Bilirubin 0.6 Indirect Bilirubin 0.9 Aspartate Amino Transf (AST/SGOT) 25 Alanine Aminotransferase (ALT/SGPT) 21 Alkaline Phosphatase 71 Total Protein 6.3 Albumin 2.7 Date/Time Source Procedure Growth Status 02/23/18 11:20 Blood Peripheral Aerobic Blood Culture Pending Received 02/23/18 11:20 Blood Peripheral Anaerobic Blood Culture Pending Received 02/23/18 00:44 Stool Stool - Final NO ENTERIC PATHOGENS DETECTED BY PCR... Complete 02/22/18 11:40 Nasal Aspirate Influenza Types A,B Antigen (MACARIO) - Final NEGATIVE FOR FLU A AND B ANTIGEN.... Complete 02/22/18 13:25 Urine Clean Catch Urine Culture - Preliminary Gram Negative Omid Resulted Result Diagram: 02/23/18 0520 02/23/18 0520 Assessment and Plan Problem List: (1) Sepsis ICD Codes: A41.9 - Sepsis, unspecified organism Status: Acute (2) UTI (urinary tract infection) ICD Codes: N39.0 - Urinary tract infection, site not specified Status: Acute (3) E. coli septicemia ICD Codes: A41.51 - Sepsis due to Escherichia coli [E. coli] Assessment and Plan Follow cultures Continue Zosyn Repeat Blood cultures to make sure he is clearing bacteremia Once susceptibility is back can readjust antibiotic Problem Qualifiers (1) Sepsis: Qualified Codes: A41.51 - Sepsis due to Escherichia coli [e. coli] (2) UTI (urinary tract infection): Qualified Codes: N39.0 - Urinary tract infection, site not specified Britt Rivas MD Feb 23, 2018 18:33
[2018-02-23 20:00] VITALS: BP 174/77; PULSE 83; RESP 22; TEMP 98.7; O2SAT 91
[2018-02-23] MEDS: amLODIPine BESYLATE 5 MG TAB PO SCH (21:13)
[2018-02-23] MEDS: ATORVASTATIN 20 MG TAB PO SCH (21:13)
[2018-02-23] MEDS: DOXAZOSIN MESYLATE 4 MG TAB PO SCH (21:13)
[2018-02-23 21:15] VITALS: O2SAT 95
[2018-02-23] MEDS: RESP: ALBUTEROL 0.63 MG/3 ML NEB (SCH) NEB (21:16)
[2018-02-23] MEDS: LACTOBACILLUS ACIDOPHILUS TAB PO SCH (21:23)
[2018-02-24] VITALS (7 sets, daily range): BP systolic 147–172; BP diastolic 78–88; PULSE 68–82; RESP 14–22; TEMP 97.4–99.1; O2SAT 92–100
[2018-02-24] MEDS: RESP: ALBUTEROL 0.63 MG/3 ML NEB (SCH) NEB ×4 (02:45→20:28)
[2018-02-24] MEDS: SODIUM CHLOR 0.9% 1000 ML INJ 1,000 ML IV SCH ×2 (04:34→17:59)
[2018-02-24] MEDS: ACETAMINOPHEN/HYDROcodone 325 MG/5 MG TAB PO PRN ×3 (04:42→18:09)
[2018-02-24] MEDS: HEPARIN SODIUM - SQ 10,000 UNITS/ML VIAL SQ SCH ×2 (04:42→18:01)
[2018-02-24] MEDS: PIPERACIL-TAZO 4.5 GM PREMIX 100 ML IV SCH ×3 (06:15→20:50)
[2018-02-24] MEDS: LEVOTHYROXINE SODIUM 25 MCG TAB PO SCH (06:15)
[2018-02-24 07:00] LABS: AUTOMATED NEUTROPHIL # 4.6 TH/MM3 (1.8-7.7); BASOPHIL % 0.4 % (0.0-2.0); EOSINOPHIL # 0.1 TH/MM3 (0-0.4); EOSINOPHIL % 2.2 % (0.0-4.0); HEMATOCRIT 36.2 % (39.0-51.0); HEMOGLOBIN 12.1 GM/DL (13.0-17.0); LYMPH % 10.4 % (9.0-44.0); LYMPHOCYTE # 0.6 TH/MM3 (1.0-4.8); MEAN CELL VOLUME 92.1 FL (80.0-100.0); MEAN CORPUSCULAR HEMOGLOBIN 30.7 PG (27.0-34.0); MEAN CORPUSCULAR HGB CONC 33.3 % (32.0-36.0); MEAN PLATELET VOLUME 8.4 FL (7.0-11.0); MONOCYTE # 0.9 TH/MM3 (0-0.9); PLATELET COUNT 154 TH/MM3 (150-450); RED BLOOD COUNT 3.93 MIL/MM3 (4.50-5.90); RED CELL DISTRIBUTION WIDTH 13.3 % (11.6-17.2); WHITE BLOOD COUNT 6.2 TH/MM3 (4.0-11.0)
[2018-02-24 07:33] LABS: ALBUMIN 2.8 GM/DL (3.4-5.0); BICARBONATE 26.6 MEQ/L (21.0-32.0); BLOOD UREA NITROGEN 18 MG/DL (7-18); GLUCOSE,RANDOM 96 MG/DL (74-106)
[2018-02-24 07:36] LABS: ALT (GPT) 23 U/L (12-78); AST (GOT) 28 U/L (15-37); GLOMERULAR FILTRATION RATE 59 ML/MIN (>89)
[2018-02-24 07:38] LABS: TOTAL BILIRUBIN ADULT 0.9 MG/DL (0.2-1.0); TOTAL PROTEIN 6.3 GM/DL (6.4-8.2)
[2018-02-24 07:39] LABS: ALKALINE PHOSPHATASE 78 U/L (45-117)
[2018-02-24 07:42] LABS: CHLORIDE 108 MEQ/L (98-107); SODIUM (NA) 143 MEQ/L (136-145)
[2018-02-24] MEDS: GABAPENTIN 400 MG CAP PO SCH ×3 (08:50→17:59)
[2018-02-24] MEDS: LACTOBACILLUS ACIDOPHILUS TAB PO SCH ×2 (08:51→20:49)
[2018-02-24] MEDS: ALLOPURINOL 300 MG TAB PO SCH (08:51)
[2018-02-24] MEDS: SERTRALINE HCL 100 MG TAB PO SCH (08:51)
[2018-02-24] MEDS: SODIUM CHLORIDE 0.9% FLUSH 10 ML FLUSH IV FLUSH SCH ×2 (08:52→20:14)
--- NOTE | 2018-02-24 09:09 | HHI.PR ---
Subjective Remarks Follow-up sepsis secondary to UTI. Patient seen and examined, lying in bed comfortably in no apparent distress. States he does feel improved, slept well. Has been out of bed ambulating well. Eating well, denies any abdominal pain, nausea or vomiting. Infectious disease input appreciated, awaiting growth of repeat blood cultures. Continue current antibiotic regimen. Vital signs are stable. Overnight afebrile. No leukocytosis. Objective Vitals Vital Signs Date Time Temp Pulse Resp B/P (MAP) Pulse Ox O2 Delivery O2 Flow Rate FiO2 02/24/18 00:00 98.4 76 22 172/88 (116) 94 02/23/18 21:15 95 21 02/23/18 20:00 98.7 83 22 174/77 (109) 91 02/23/18 16:00 99.1 79 17 172/87 (115) 96 02/23/18 12:00 98.1 71 15 150/78 (102) 93 I/O 02/23/18 02/23/18 02/23/18 02/24/18 02/24/18 02/24/18 07:00 15:00 23:00 07:00 15:00 23:00 Intake Total 1200 ml 960 ml 540 ml 969 ml Balance 1200 ml 960 ml 540 ml 969 ml Intake Oral 960 ml 240 ml IV Total 1200 ml 300 ml 969 ml # Voids 2 4 2 # Bowel Movements 4 6 1 Result Diagram: 02/24/18 0540 02/24/18 0540 Imaging Last Impressions Chest X-Ray 02/23/18 0000 Signed Impressions: Service Date/Time: February 08:56 - CONCLUSION: No acute cardiopulmonary disease. No focal infiltrates seen. Jordon Franco MD Abdomen/Pelvis CT 02/22/18 0000 Signed Impressions: Service Date/Time: Thursday, February 22, 2018 13:05 - CONCLUSION: 1. Multiple calcified gallstones. 2. Small umbilical hernia which contains a loop of small bowel. No dilated loops of small or large bowel. 3. There is some mild induration of the fat in the left lower quadrant posterior to the proximal sigmoid. There also a few scattered sigmoid diverticula. The areas of induration did not come into contact with the sigmoid suggesting this may be manifestation of an old inflammatory process. No evidence of free fluid. 4. 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 Jordon Franco MD Objective Remarks GENERAL: Well-developed, well-nourished patient in NAD. SKIN: Warm and dry. No rash. HEAD: Normocephalic. Atraumatic. EYES: Pupils equal and round. No scleral icterus. No injection or drainage. ENT: No nasal bleeding or discharge. Mucous membranes pink and moist. NECK: Supple. Trachea midline. CARDIOVASCULAR: Regular rate and rhythm. S1, S2 noted. No murmur appreciated. RESPIRATORY: No accessory muscle use. Clear to auscultation. Breath sounds equal bilaterally. GASTROINTESTINAL: Abdomen soft, non-tender, nondistended. Normoactive bowel sounds x4. MUSCULOSKELETAL: No obvious deformities. Extremities without clubbing, cyanosis , or edema. NEUROLOGICAL: Awake and alert. No obvious cranial nerve deficits. Motor grossly within normal limits. 5/5 muscle strength in bilateral upper and lower extremities. Normal speech. PSYCHIATRIC: Appropriate mood and affect; insight and judgment normal. A/P Problem List: (1) Sepsis ICD Code: A41.9 - Sepsis, unspecified organism Status: Acute (2) UTI (urinary tract infection) ICD Code: N39.0 - Urinary tract infection, site not specified Status: Acute (3) Diarrhea ICD Code: R19.7 - Diarrhea, unspecified Status: Acute (4) Cholelithiasis ICD Code: K80.20 - Calculus of gallbladder without cholecystitis without obstruction Status: Acute Assessment and Plan This is a pleasant 77-year-old male patient with a known medical history of hyperlipidemia, hypertension and AAA who presented to the ED with complaints of subjective fever, dysuria and diarrhea. Sepsis secondary to UTI with possible pneumonia - Meet sepsis criteria with tachycardia, fever, elevated lactic acid, suspect source UTI - Chest x-ray reviewed showing septal patchy opacities in lung bases bilaterally. Repeat chest x-ray showing no acute cardiopulmonary disease and no focal infiltrate seen. Placed on Vanco and Zosyn IV for bacteremia. - UA reviewed showing presence of leukocyte esterase and white blood cells. Urine culture growing gram negative rods, await MACARIO and sensitivity. Continue ABX. Blood cultures growing gram negative ilda x 4 bottles with aerobic bottle with E. Coli. ID consult placed, appreciate input. Repeat blood cultures pending, will continue current antibiotic regimen. - Was given 3 L NS bolus in ED. Ensure hydration, continue IV fluid. - No leukocytosis at this time. Monitor for fever. Afebrile overnight. Monitor CBC. Influenza negative. - Monitor for nausea or vomiting, Zofran available as needed. Acetaminophen for fever. - Control pain, [place] available as needed. - Supplemental O2 as needed. Patient is comfortable on room air. Supportive care. Cholelithiasis Diarrhea Hyperbilirubinemia - Abdominal/pelvis CT reviewed showing multiple calcified gallstones. Small umbilical hernia. Diverticula. No evidence of free fluid. Supportive care. - Will obtain stool studies, pending. C. difficile negative. Continue Maalox. - Patient states he has been told his total bilirubin has been elevated in the past. Rechecked today is within normal limits. Will continue to monitor. Hypokalemia, mild: K3.2 today. Replacement ordered. Continue to monitor BMP. Hypothyroidism, chronic: Continue home Synthroid. Hypertension, chronic: BP mildly elevated, will increase home Norvasc to 10 mg from 5 mg.. Continue Cardura. Follow BP trends. Hyperlipidemia, chronic: Continue home statin. DVT prophylaxis: SCDs. Heparin. Problem Qualifiers (1) Sepsis: Qualified Codes: A41.51 - Sepsis due to Escherichia coli [e. coli] (2) UTI (urinary tract infection): Qualified Codes: N39.0 - Urinary tract infection, site not specified (3) Diarrhea: Qualified Codes: R19.7 - Diarrhea, unspecified (4) Cholelithiasis: Qualified Codes: K80.20 - Calculus of gallbladder without cholecystitis without obstruction Zulema Stevens Feb 24, 2018 09:09
[2018-02-24] MEDS ORDERED: POTASSIUM CHLORIDE 10 MEQ CONTROLLED RELEASE TAB PO ONE (10:00)
[2018-02-24] MEDS: ATORVASTATIN 20 MG TAB PO SCH (20:49)
[2018-02-24] MEDS: DOXAZOSIN MESYLATE 4 MG TAB PO SCH (20:50)
[2018-02-25 00:37] VITALS: BP 138/79; PULSE 80; RESP 18; TEMP 98.7; O2SAT 92
[2018-02-25] MEDS: ACETAMINOPHEN/HYDROcodone 325 MG/5 MG TAB PO PRN ×2 (01:43→08:07)
[2018-02-25] MEDS: HEPARIN SODIUM - SQ 10,000 UNITS/ML VIAL SQ SCH (04:00)
[2018-02-25] MEDS: PIPERACIL-TAZO 4.5 GM PREMIX 100 ML IV SCH (05:08)
[2018-02-25] MEDS: SODIUM CHLOR 0.9% 1000 ML INJ 1,000 ML IV SCH ×2 (05:09→08:08)
[2018-02-25] MEDS: LEVOTHYROXINE SODIUM 25 MCG TAB PO SCH (05:10)
[2018-02-25 06:51] LABS: AUTOMATED NEUTROPHIL # 4.4 TH/MM3 (1.8-7.7); BASOPHIL % 0.4 % (0.0-2.0); EOSINOPHIL # 0.2 TH/MM3 (0-0.4); EOSINOPHIL % 2.9 % (0.0-4.0); HEMATOCRIT 37.8 % (39.0-51.0); HEMOGLOBIN 12.8 GM/DL (13.0-17.0); LYMPH % 15.1 % (9.0-44.0); MEAN CORPUSCULAR HEMOGLOBIN 31.4 PG (27.0-34.0); MEAN CORPUSCULAR HGB CONC 33.8 % (32.0-36.0); MONO % 16.3 % (0.0-8.0); MONOCYTE # 1.1 TH/MM3 (0-0.9); NEUT % 65.3 % (16.0-70.0); PLATELET COUNT 170 TH/MM3 (150-450); RED BLOOD COUNT 4.07 MIL/MM3 (4.50-5.90); RED CELL DISTRIBUTION WIDTH 13.7 % (11.6-17.2); WHITE BLOOD COUNT 6.7 TH/MM3 (4.0-11.0)
[2018-02-25 07:07] LABS: CALCIUM 8.2 MG/DL (8.5-10.1)
[2018-02-25 07:08] LABS: BICARBONATE 28.7 MEQ/L (21.0-32.0)
[2018-02-25 07:52] VITALS: O2SAT 94
[2018-02-25] MEDS: RESP: ALBUTEROL 0.63 MG/3 ML NEB (SCH) NEB (07:52)
[2018-02-25 08:00] VITALS: BP 182/86; PULSE 67; RESP 18; TEMP 98.3; O2SAT 96
[2018-02-25] MEDS: GABAPENTIN 400 MG CAP PO SCH (08:06)
[2018-02-25] MEDS: SERTRALINE HCL 100 MG TAB PO SCH (08:06)
[2018-02-25] MEDS: LACTOBACILLUS ACIDOPHILUS TAB PO SCH (08:07)
[2018-02-25] MEDS: ALLOPURINOL 300 MG TAB PO SCH (08:07)
[2018-02-25] MEDS: SODIUM CHLORIDE 0.9% FLUSH 10 ML FLUSH IV FLUSH SCH (08:07)
--- NOTE | 2018-02-25 09:34 | HHI.PR ---
Subjective Remarks Follow-up sepsis secondary to UTI. Patient seen and examined lying in bed comfortably no apparent distress. Patient states he is back to baseline, feeling much improved. Does state that he has had some watery stools, C. difficile is negative stool studies negative. Placed on Imodium today. He is eating well, ambulating well. ID has seen patient, repeat blood cultures negative. Will continue on antibiotics for 2 weeks. Vital signs are stable. Afebrile. Objective Vitals Vital Signs Date Time Temp Pulse Resp B/P (MAP) Pulse Ox O2 Delivery O2 Flow Rate FiO2 02/25/18 04:14 02/25/18 00:37 98.7 80 18 138/79 (98) 92 02/24/18 20:40 99.1 82 18 159/84 (109) 93 02/24/18 20:28 100 21 02/24/18 16:00 98.0 71 14 147/78 (101) 92 02/24/18 12:00 98.4 72 16 155/80 (105) 94 02/24/18 10:14 95 21 I/O 02/24/18 02/24/18 02/24/18 02/25/18 02/25/18 02/25/18 07:00 15:00 23:00 07:00 15:00 23:00 Intake Total 969 ml 222 ml Balance 969 ml 222 ml Intake Oral 222 ml IV Total 969 ml # Voids 10 5 # Bowel Movements 8 0 Result Diagram: 02/25/18 0600 02/25/18 0600 Imaging Last Impressions Chest X-Ray 02/23/18 0000 Signed Impressions: Service Date/Time: February 08:56 - CONCLUSION: No acute cardiopulmonary disease. No focal infiltrates seen. Jordon Franco MD Abdomen/Pelvis CT 02/22/18 0000 Signed Impressions: Service Date/Time: Thursday, February 22, 2018 13:05 - CONCLUSION: 1. Multiple calcified gallstones. 2. Small umbilical hernia which contains a loop of small bowel. No dilated loops of small or large bowel. 3. There is some mild induration of the fat in the left lower quadrant posterior to the proximal sigmoid. There also a few scattered sigmoid diverticula. The areas of induration did not come into contact with the sigmoid suggesting this may be manifestation of an old inflammatory process. No evidence of free fluid. 4. 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 Jordon Franco MD Objective Remarks GENERAL: Well-developed, well-nourished patient in NAD. SKIN: Warm and dry. No rash. HEAD: Normocephalic. Atraumatic. EYES: Pupils equal and round. No scleral icterus. No injection or drainage. ENT: No nasal bleeding or discharge. Mucous membranes pink and moist. NECK: Supple. Trachea midline. CARDIOVASCULAR: Regular rate and rhythm. S1, S2 noted. No murmur appreciated. RESPIRATORY: No accessory muscle use. Clear to auscultation. Breath sounds equal bilaterally. GASTROINTESTINAL: Abdomen soft, non-tender, nondistended. Normoactive bowel sounds x4. MUSCULOSKELETAL: No obvious deformities. Extremities without clubbing, cyanosis , or edema. NEUROLOGICAL: Awake and alert. No obvious cranial nerve deficits. Motor grossly within normal limits. 5/5 muscle strength in bilateral upper and lower extremities. Normal speech. PSYCHIATRIC: Appropriate mood and affect; insight and judgment normal. A/P Problem List: (1) Sepsis ICD Code: A41.9 - Sepsis, unspecified organism Status: Acute (2) UTI (urinary tract infection) ICD Code: N39.0 - Urinary tract infection, site not specified Status: Acute (3) Diarrhea ICD Code: R19.7 - Diarrhea, unspecified Status: Acute (4) Cholelithiasis ICD Code: K80.20 - Calculus of gallbladder without cholecystitis without obstruction Status: Acute Assessment and Plan This is a pleasant 77-year-old male patient with a known medical history of hyperlipidemia, hypertension and AAA who presented to the ED with complaints of subjective fever, dysuria and diarrhea. Sepsis secondary to UTI with possible pneumonia - Meet sepsis criteria with tachycardia, fever, elevated lactic acid, suspect source UTI - Chest x-ray reviewed showing septal patchy opacities in lung bases bilaterally. Repeat chest x-ray showing no acute cardiopulmonary disease and no focal infiltrate seen. Placed on Vanco and Zosyn IV for bacteremia. - UA reviewed showing presence of leukocyte esterase and white blood cells. Urine culture growing gram negative rods, await MACARIO and sensitivity. Continue ABX. Blood cultures growing gram negative ilda x 4 bottles with aerobic bottle with E. Coli. ID consult placed, appreciate input. Repeat blood cultures negative today. Will place on soft fear oxime 2 weeks upon discharge. - Was given 3 L NS bolus in ED. Ensure hydration, continue IV fluid. - No leukocytosis at this time. Monitor for fever. Afebrile overnight. Monitor CBC. Influenza negative. - Monitor for nausea or vomiting, Zofran available as needed. Acetaminophen for fever. - Control pain, [place] available as needed. - Supplemental O2 as needed. Patient is comfortable on room air. Supportive care. Cholelithiasis Diarrhea Hyperbilirubinemia - Abdominal/pelvis CT reviewed showing multiple calcified gallstones. Small umbilical hernia. Diverticula. No evidence of free fluid. Supportive care. - Will obtain stool studies, pending. C. difficile negative. Continue Maalox. - Patient states he has been told his total bilirubin has been elevated in the past. Rechecked today is within normal limits. Will continue to monitor. Hypokalemia, mild: Resolved. Hypothyroidism, chronic: Continue home Synthroid. Hypertension, chronic: BP mildly elevated, will increase home Norvasc to 10 mg from 5 mg.. Continue Cardura. Follow BP trends. Discontinued IV fluids Hyperlipidemia, chronic: Continue home statin. DVT prophylaxis: SCDs. Heparin. Problem Qualifiers (1) Sepsis: Qualified Codes: A41.51 - Sepsis due to Escherichia coli [e. coli] (2) UTI (urinary tract infection): Qualified Codes: N39.0 - Urinary tract infection, site not specified (3) Diarrhea: Qualified Codes: R19.7 - Diarrhea, unspecified (4) Cholelithiasis: Qualified Codes: K80.20 - Calculus of gallbladder without cholecystitis without obstruction Zulema Stevens Feb 25, 2018 09:34
[2018-02-25] MEDS ORDERED: LOPERAMIDE HCL 2 MG CAP PO PRN (09:45)
--- NOTE | 2018-02-25 11:10 | HHI.DS ---
Discharge Summary Admission Date Feb 22, 2018 at 14:20 Discharge Date: Feb 25, 2018 Admitting Diagnosis Sepsis, UTI (1) Sepsis ICD Code: A41.9 - Sepsis, unspecified organism Status: Acute (2) UTI (urinary tract infection) ICD Code: N39.0 - Urinary tract infection, site not specified Status: Acute (3) Diarrhea ICD Code: R19.7 - Diarrhea, unspecified Status: Acute (4) Cholelithiasis ICD Code: K80.20 - Calculus of gallbladder without cholecystitis without obstruction Status: Acute Procedures See below Brief History - From Admission This is a pleasant 77-year-old male patient with a known medical history of hyperlipidemia, hypertension and AAA who presented to the ED with complaints of subjective fever, dysuria and diarrhea. Patient states that over a week now he has been noticing increasing dysuria, hesitancy and frequency during urination. Patient states he attempted drinking more water to relieve the symptoms with no relief but symptoms have actually worsened with complaint of associated fever up to 103 at home and persistent diarrhea. Does admit to poor appetite. Patient denies any recent antibiotic use. Denies any sick contacts. Denies any abdominal pain, nausea or vomiting. Patient's PCP is Dr. Hand. CBC/BMP: 02/25/18 0600 02/25/18 0600 Significant Findings Laboratory Tests Test 02/22/18 11:40 02/22/18 13:25 02/22/18 16:45 02/23/18 00:44 Red Blood Count 4.23 MIL/MM3 (4.50-5.90) Platelet Count 144 TH/MM3 (150-450) Neutrophils (%) (Auto) 90.5 % (16.0-70.0) Lymphocytes (%) (Auto) 3.3 % (9.0-44.0) Neutrophils # (Auto) 8.0 TH/MM3 (1.8-7.7) Lymphocytes # (Auto) 0.3 TH/MM3 (1.0-4.8) Blood Urea Nitrogen 19 MG/DL (7-18) Random Glucose 138 MG/DL (74-106) Albumin 2.9 GM/DL (3.4-5.0) Calcium Level 8.1 MG/DL (8.5-10.1) Total Bilirubin 2.6 MG/DL (0.2-1.0) Potassium Level 3.3 MEQ/L (3.5-5.1) Estimat Glomerular Filtration Rate 54 ML/MIN (>89) Lactic Acid Level 2.7 mmol/L (0.4-2.0) Urine Color DARK-YELLOW (YELLW/STRAW) Urine Turbidity CLOUDY (CLEAR) Urine Protein 100 mg/dL (NEG-TRACE) Urine Ketones 15 mg/dL (NEG) Urine Nitrite POS (NEG) Urine Bilirubin MOD (NEG) Urine Urobilinogen GREATER/EQUAL 8.0 MG/DL Urine Leukocyte Esterase SMALL (NEG) Urine RBC 4-9 /hpf (0-3) Urine WBC 50-99 /hpf (0-5) Urine Bacteria MANY /hpf (NONE) Test 02/23/18 05:20 02/24/18 05:40 02/25/18 06:00 Red Blood Count 3.98 MIL/MM3 (4.50-5.90) 3.93 MIL/MM3 (4.50-5.90) 4.07 MIL/MM3 (4.50-5.90) Hemoglobin 12.8 GM/DL (13.0-17.0) 12.1 GM/DL (13.0-17.0) 12.8 GM/DL (13.0-17.0) Hematocrit 37.1 % (39.0-51.0) 36.2 % (39.0-51.0) 37.8 % (39.0-51.0) Platelet Count 135 TH/MM3 (150-450) Neutrophils (%) (Auto) 77.0 % (16.0-70.0) 72.0 % (16.0-70.0) Monocytes (%) (Auto) 11.4 % (0.0-8.0) 15.0 % (0.0-8.0) 16.3 % (0.0-8.0) Lymphocytes # (Auto) 0.8 TH/MM3 (1.0-4.8) 0.6 TH/MM3 (1.0-4.8) Blood Urea Nitrogen 20 MG/DL (7-18) Calcium Level 8.2 MG/DL (8.5-10.1) 8.0 MG/DL (8.5-10.1) 8.2 MG/DL (8.5-10.1) Estimat Glomerular Filtration Rate 59 ML/MIN (>89) 59 ML/MIN (>89) 73 ML/MIN (>89) Total Bilirubin 1.5 MG/DL (0.2-1.0) Direct Bilirubin 0.6 MG/DL (0.0-0.2) Indirect Bilirubin 0.9 MG/DL (0.0-0.8) Total Protein 6.3 GM/DL (6.4-8.2) 6.3 GM/DL (6.4-8.2) Albumin 2.7 GM/DL (3.4-5.0) 2.8 GM/DL (3.4-5.0) Potassium Level 3.2 MEQ/L (3.5-5.1) Chloride Level 108 MEQ/L (98-107) Monocytes # (Auto) 1.1 TH/MM3 (0-0.9) Imaging Last Impressions Chest X-Ray 02/23/18 0000 Signed Impressions: Service Date/Time: February 08:56 - CONCLUSION: No acute cardiopulmonary disease. No focal infiltrates seen. Jordon Franco MD Abdomen/Pelvis CT 02/22/18 0000 Signed Impressions: Service Date/Time: Thursday, February 22, 2018 13:05 - CONCLUSION: 1. Multiple calcified gallstones. 2. Small umbilical hernia which contains a loop of small bowel. No dilated loops of small or large bowel. 3. There is some mild induration of the fat in the left lower quadrant posterior to the proximal sigmoid. There also a few scattered sigmoid diverticula. The areas of induration did not come into contact with the sigmoid suggesting this may be manifestation of an old inflammatory process. No evidence of free fluid. 4. 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 Jordon Franco MD PE at Discharge GENERAL: Well-developed, well-nourished patient in NAD. SKIN: Warm and dry. No rash. HEAD: Normocephalic. Atraumatic. EYES: Pupils equal and round. No scleral icterus. No injection or drainage. ENT: No nasal bleeding or discharge. Mucous membranes pink and moist. NECK: Supple. Trachea midline. CARDIOVASCULAR: Regular rate and rhythm. S1, S2 noted. No murmur appreciated. RESPIRATORY: No accessory muscle use. Clear to auscultation. Breath sounds equal bilaterally. GASTROINTESTINAL: Abdomen soft, non-tender, nondistended. Normoactive bowel sounds x4. MUSCULOSKELETAL: No obvious deformities. Extremities without clubbing, cyanosis , or edema. NEUROLOGICAL: Awake and alert. No obvious cranial nerve deficits. Motor grossly within normal limits. 5/5 muscle strength in bilateral upper and lower extremities. Normal speech. PSYCHIATRIC: Appropriate mood and affect; insight and judgment normal. Pt update on day of discharge Follow-up sepsis secondary to UTI. Patient seen and examined lying in bed comfortably no apparent distress. Patient states he is back to baseline, feeling much improved. Does state that he has had some watery stools, C. difficile is negative stool studies negative. Placed on Imodium today. He is eating well, ambulating well. ID has seen patient, repeat blood cultures negative. Will continue on antibiotics for 2 weeks. Vital signs are stable. Afebrile. Hospital Course This is a pleasant 77-year-old male patient with a known medical history of hyperlipidemia, hypertension and AAA who presented to the ED with complaints of subjective fever, dysuria and diarrhea. Sepsis secondary to UTI with pneumonia. Chest x-ray reviewed showing septal patchy opacities in lung bases bilaterally. Repeat chest x-ray showing no acute cardiopulmonary disease and no focal infiltrate seen. Placed on Vanco and Zosyn IV for bacteremia. Urine culture growing e coli. Continue ABX. Blood cultures growing gram negative ilda x 4 bottles with aerobic bottle with E. Coli. Will place on cefuroxime 2 weeks upon discharge. Was given 3 L NS bolus in ED and placed on IVF. No leukocytosis. Afebrile. Influenza negative. Patient with abdominal pain abdominal pelvis CT showing multiple calcified stones and small umbilical hernia with diverticula. No free fluid. Cholelithiasis, diarrhea and hyperbilirubinemia, states he has been told his total bilirubin has been elevated in the past. Rechecked is within normal limits. Will continue to monitor. C. difficile negative. Patient with hypokalemia during hospitalization, patient given replacement. Resolved. Other chronic medical problems including hypothyroidism, hyperlipidemia and hypertension all stable at the time of discharge. Pt Condition on Discharge: Good Discharge Disposition: Discharge Home Discharge Time: > 30 minutes Discharge Instructions DIET: Follow Instructions for: Heart Healthy Diet Activities you can perform: Regular-No Restrictions Follow up Referrals: PCP Follow-up - 1 Week New Medications: Cefuroxime (Cefuroxime) 500 Mg Tab 500 MG PO BID for Infection for 14 Days, #28 TAB 0 Refills Amlodipine (Norvasc) 10 Mg Tab 10 MG PO HS for htn for 30 Days, #30 TAB Lactobacillus Acidophilus (Acidophilus/l-Sporogenes) 35 Million Cell-25 Million Cell Tab 1 TAB PO Q12HR for supplement for 30 Days, #30 TAB Loperamide HCl (Hm Loperamide HCl) 2 Mg Cap 2 MG PO Q6H PRN for diarrhea for 10 Days, #40 CAP Continued Medications: Allopurinol (Allopurinol) 300 Mg Tab 150 MG PO DAILY for Gout, #30 TAB 0 Refills Atorvastatin (Atorvastatin) 20 Mg Tab 20 MG PO HS for Cholesterol Management, #30 TAB 0 Refills Doxazosin (Doxazosin) 8 Mg Tab 8 MG PO HS, #30 TAB 0 Refills Gabapentin (Gabapentin) 800 Mg Tab 800 MG PO TID, #90 TAB 0 Refills Hydrocodone-Acetaminophen (Hydrocodone-Acetaminophen) 5-325 mg Tab 1 TAB PO Q6H PRN for PAIN, TAB 0 Refills Levothyroxine (Levothyroxine) 25 Mcg Tab 25 MCG PO DAILY for Thyroid, #30 TAB 0 Refills Sertraline (Sertraline) 100 Mg Tab 100 MG PO DAILY, #30 TAB 0 Refills Testosterone Cypionate Inj (Testosterone Cypionate Inj) 100 Mg/Ml Inj 1.5 ML IM EVERY 10 DAYS for Hormone Replacement, #1 INJECTION 0 Refills Discontinued Medications: Amlodipine (Amlodipine) 5 Mg Tab 5 MG PO HS for Blood Pressure Management, #30 TAB 0 Refills Zulema Stevens Feb 25, 2018 11:10
--- NOTE | 2018-02-25 11:10 | HHI.DCPOC ---
Discharge Care Plan Diagnosis: (1) Sepsis (2) E. coli septicemia (3) Cholelithiasis (4) Diarrhea (5) UTI (urinary tract infection) Goals to Promote Your Health * To prevent worsening of your condition and complications * To maintain your health at the optimal level Directions to Meet Your Goals Take your medications as prescribed Follow your dietary instruction Follow activity as directed Keep your appointments as scheduled Take your immunizations and boosters as scheduled If your symptoms worsen call your PCP, if no PCP go to Urgent Care Center or Emergency Room Smoking is Dangerous to Your Health. Avoid second hand smoke Call the 24-hour hour crisis hotline for domestic abuse at Zulema Stevens Feb 25, 2018 11:10
[2018-02-25] MEDS ORDERED: AMLO10 PO (11:13)
[2018-02-25] MEDS ORDERED: LOPE2CAP2 PO (11:13)
[2018-02-25] MEDS ORDERED: LACT PO (11:13)
[2018-02-25] MEDS ORDERED: CEFU1TAB20 PO (11:13)
[2018-02-25 12:05] VITALS: BP 154/96; PULSE 66; RESP 18; TEMP 97.6; O2SAT 94
== END 2018-02-25 13:52 | disposition home or self-care (01) | DRG 871 ==
LOC: PHED 11:10 → PHEDA 14:20 → PH3B 15:30
PROVIDERS: ADMIT Hospitalist; ATTEND Hospitalist
DX: A41.51 Sepsis due to Escherichia coli [E. coli] (principal); J18.9 Pneumonia, unspecified organism; N39.0 Urinary tract infection, site not specified; E87.6 Hypokalemia; R19.7 Diarrhea, unspecified; I10 Essential (primary) hypertension; K80.20 Calculus of gallbladder without cholecystitis without obstruction; E78.5 Hyperlipidemia, unspecified; I71.4 Abdominal aortic aneurysm, without rupture; K42.9 Umbilical hernia without obstruction or gangrene; E03.9 Hypothyroidism, unspecified; M10.9 Gout, unspecified; K57.90 Diverticulosis of intestine, part unspecified, without perforation or abscess without bleeding
CPT/HCPCS: 71045; 71046; 74176; 80048; 80053; 80076; 81001; 83605; 85025; 87040; 87077; 87086; 87186; 87205; 87493; 87506; 87804; 94640; 94664; 96361; 96365; J1644; J1885; J2543; J3370; J7030; J7050; J7613